=== PATIENT | female | born 1990 | race Hispanic/Latino ===

== ENCOUNTER 2018-06-17 20:43 | Emergency (ER) | payer OTHER ==
[2018-06-17 21:36] VITALS: BP 146/82; PULSE 72; RESP 16; TEMP 98; O2SAT 99
--- NOTE | 2018-06-17 21:52 | ED PDOC ---
HPI: Head Injury Time Seen by Provider: 06/17/18 21:51 Chief Complaint (Nursing): Abnormal Skin Integrity Chief Complaint (Provider): head injury History Per: Patient (27 y/o female here with head injury after being struck with side of camera equipment in [facility]. Denies any LOC. Notes mild head soreness but no nausea/vomiting/dizziness. Unsure of tetanus status.) Past Medical History Reviewed: Historical Data, Nursing Documentation, Vital Signs Vital Signs: Last Vital Signs Temp 98.0 F 06/17/18 21:34 Pulse 72 06/17/18 21:34 Resp 16 06/17/18 21:34 BP 146/82 06/17/18 21:34 Pulse Ox 99 06/17/18 21:34 - Family History Family History: States: No Known Family Hx - Allergies Allergies/Adverse Reactions: Allergies Allergy/AdvReac Type Severity Reaction Status Date / Time minocycline [From Dynacin] Allergy RASH Verified 06/17/18 21:34 Penicillins Allergy RASH Verified 06/17/18 21:34 Review of Systems ROS Statement: Except As Marked, All Systems Reviewed And Found Negative Physical Exam - Reviewed Nursing Documentation Reviewed: Yes Vital Signs Reviewed: Yes - Physical Exam Appears: Positive for: Well, Non-toxic, No Acute Distress Head Exam: Positive for: NORMAL INSPECTION, NORMOCEPHALIC. Negative for: ATRAUMATIC (2.5 cm laceration superior aspect of scalp.) Skin: Positive for: Normal Color, Warm, DRY Eye Exam: Positive for: EOMI, Normal appearance, PERRL ENT: Positive for: Normal ENT Inspection Neck: Positive for: Normal, Painless ROM Cardiovascular/Chest: Positive for: Regular Rate, Rhythm Respiratory: Positive for: CNT, Normal Breath Sounds Gastrointestinal/Abdominal: Positive for: Normal Exam, Soft Back: Positive for: Normal Inspection Extremity: Positive for: Normal ROM Neurologic/Psych: Positive for: Alert, Oriented - ECG O2 Sat by Pulse Oximetry: 99 - Progress ED Course And Treament: Tdap 0.5ml IM x 1 dose Disposition - Clinical Impression Clinical Impression: Head injury, Laceration of head - Patient ED Disposition Is Patient to be Admitted: No - Disposition Disposition: Routine/Home Disposition Time: 22:55 Condition: FAIR Additional Instructions: FOLLOW UP WITH PMD/URGENT CARE /ED IN 7 TO 10 DAYS FOR STAPLE REMOVAL Instructions: Laceration Repair With Kenny (DC), Minor Head Injury (DC) Procedure: Wound Repair - Time Performed Time Performed: 22:54 - Time Out Time Out: Site verified - Consent Obtained Consent obtained: Verbal - Performed by Performed by: Mid-level Provider - Indications Indication(s):: Laceration - Location Location:: Scalp Shape:: Linear Dimensions Length cm: 2.5cm Depth:: Epidermis - Anesthetic Technique Anesthetic Technique: Regional block Local/Regional Anesthetic:: Lidocaine 2% w/epi - Debris Debris:: None - Irrigated Irrigated with ml of normal saline: 200ml - Complexity Complexity:: Simple (one layer) - Wound repair method Sutures:: # (five kenny interrupted) - Muscle repiar layer closed with Muscle repair layer closed with:: Tetanus ordered - Patient tolerated procedure Patient Tolerated Procedure:: Well
[2018-06-17] MEDS ORDERED: Lidocaine 1% w Epi 1:100,000 Inj INFIL ONE (22:01)
[2018-06-17] MEDS ORDERED: Tdap Vaccine 0.5 ml Vial (10-64 yrs) IM ONE ×2 (22:02→23:16)
[2018-06-17] MEDS ORDERED: Lidocaine 2% w Epi 1:100,000 Inj IJ ONE (22:27)
== END 2018-06-17 23:45 | disposition home or self-care (01) ==
LOC: H.ER 20:43
DX: S09.90XA Unspecified injury of head, initial encounter (principal); S01.91XA Laceration without foreign body of unspecified part of head, initial encounter; W22.8XXA Striking against or struck by other objects, initial encounter; Z23 Encounter for immunization